=== PATIENT | female | born 1960 | race Caucasian/White ===

== ENCOUNTER 2019-03-01 14:34 | Outpatient (CLI) | payer OTHER ==
--- NOTE | 2019-03-01 16:10 | MMO ---
Bilateral MAMMO Bilat Screen [facility]. CLINICAL HISTORY: Patient is 58 years old and is seen for screening. The patient has the following family history of breast cancer: maternal aunt, at age 55. The patient has no personal history of cancer. The patient has a history of right Excisional Biopsy in 1999 - benign. VIEWS: The views performed were: bilateral craniocaudal with tomosynthesis and bilateral mediolateral oblique with tomosynthesis. FILMS COMPARED: The present examination has been compared to prior imaging studies performed at [facility] on 10/18/2010, 10/22/2011, 03/10/2014 and 09/08/2015. This study has been interpreted with the assistance of computer-aided detection. MAMMOGRAM FINDINGS: The breasts are almost entirely fat. There are no suspicious masses, suspicious calcifications, or new areas of architectural distortion. IMPRESSION: THERE IS NO MAMMOGRAPHIC EVIDENCE OF MALIGNANCY. A ROUTINE FOLLOW-UP MAMMOGRAM IN 1 YEAR IS RECOMMENDED. THE RESULTS OF THIS EXAM WERE SENT TO THE PATIENT. ACR BI-RADS Category 1 - Negative MAMMOGRAPHY NOTE: 1. A negative mammogram report should not delay a biopsy if a dominant of clinically suspicious mass is present. 2. Approximately 10% to 15% of breast cancers are not detected by mammography. 3. Adenosis and dense breasts may obscure an underlying neoplasm. Reported by: ALBERTO MARTINEZ MD Electonically Signed: [id number]
== END 2019-03-01 14:35 | disposition home or self-care (01) ==
LOC: BICMAMMO 14:34
PROVIDERS: ATTEND Nurse Practitioner Family
DX: Z12.31 Encounter for screening mammogram for malignant neoplasm of breast (principal); Z80.3 Family history of malignant neoplasm of breast; Z91.89 Other specified personal risk factors, not elsewhere classified
CPT/HCPCS: 77063; 77067

== ENCOUNTER 2019-04-02 09:41 | Day surgery (SDC) | payer OTHER ==
[2019-04-02] MEDS ORDERED: PROPOFOL 200 MG/20 ML VIAL ONE (11:12)
--- NOTE | 2019-04-02 11:21 | RAD ---
EXAM: 3 views of the cervical spine HISTORY: Neck pain COMPARISON: None FINDINGS: AP, lateral, and open mouth odontoid views of the cervical spine shows normal height and al ignment of the vertebral bodies and intervertebral discs without fracture or subluxation. Mild degenerative changes are seen surrounding the C5/6 intervertebral disc. No prevertebral soft tissue s welling is seen. IMPRESSION: Mild degenerative changes at C5/6 without acute abnormality.
--- NOTE | 2019-04-02 11:24 | RAD ---
XR Shoulder Rt 3 View STANDARD: 04/02/2019 10:35 AM CLINICAL INDICATION: Right shoulder pain. COMPARISON: None. FINDINGS: Bones: No acute fracture or subluxation demonstrated. Small mixed lucent and sclerotic lesion of the humeral head. This lesion was present on the comparison chest radiograph from 2012. Glenohumeral joint: Normal alignment. AC joint: Mild AC joint osteoarthrosis Visualized lung: Clear. Soft tissues: Within normal limits. IMPRESSION: Stable mixed lucent sclerotic lesion of the proximal humeral head is likely reflective of a small low -grade chondroid lesion. This was present on a chest radiograph in the right humeral head in 2012. No acute fracture or subluxation is demonstrated. 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
[2019-04-02] MEDS ORDERED: Fentanyl 100 MCG/2 ML VIAL ONE (11:33)
[2019-04-02] MEDS ORDERED: Midazolam HCl 2 mg/2 ml Vial ONE (11:33)
--- NOTE | 2019-04-02 13:47 | MRI ---
MRI CERVICAL SPINE WITHOUT CONTRAST: HISTORY: Burning pain in the right shoulder. Evaluate for nerve root impingement.. COMPARISON: None. FINDINGS: Appropriate T1 marrow signal intensity of the cervical vertebra. Vertebral body height is maintained. No fracture. No significant STIR hyperintensity to suggest vertebral body edema or ligamentous injury. Straightening of normal cervical lordosis may be positional. Visualized brain parenchyma, cervicomedullary junction, cervical cord and the upper thoracic cord hav e a normal size and signal intensity. C2-C3: Central disc protrusion, abutting the thecal sac. Subarachnoid space is nearly effaced. Minima l contact upon the cervical cord. No significant central canal stenosis. Neural foramina are patent. C3-C4: Broad-based disc-osteophyte complex abuts the thecal sac. Mild deformity of the thecal sac and cervical cord. Mild central canal stenosis. Mild to moderate right neural foraminal narrowing due to uncovertebral and facet hypertrophy. Left neural foramen is patent. C4-C5: Broad-based disc bulge without significant central canal stenosis. Neural foramina are patent. C5-C6: Moderate loss of disc space height. Broad-based disc-osteophyte complex results in mild centra l canal stenosis. Moderate bilateral foraminal narrowing due to uncovertebral hypertrophy. C6-C7: Broad-based disc-osteophyte complex without significant central canal stenosis. Right neural f oramen is patent. Minimal left foraminal narrowing due to uncovertebral hypertrophy. C7-T1: No significant canal stenosis or foraminal narrowing. IMPRESSION: Degenerative changes of the cervical spine as detailed above. Transcribed Date/Time: 04/02/2019 1:52 PM
== END 2019-04-02 14:40 | disposition home or self-care (01) ==
LOC: SDC/OP 09:41
PROVIDERS: ATTEND Orthopaedic Surgery
DX: M47.812 Spondylosis without myelopathy or radiculopathy, cervical region (principal); M19.011 Primary osteoarthritis, right shoulder; I10 Essential (primary) hypertension; E78.5 Hyperlipidemia, unspecified; F32.9 Major depressive disorder, single episode, unspecified; Z79.899 Other long term (current) drug therapy
CPT/HCPCS: 72040; 72141; J2250; J2704; J3010

== ENCOUNTER 2019-11-05 09:21 | Outpatient (CLI) | payer OTHER ==
--- NOTE | 2019-11-05 09:45 | RAD ---
Abdomen one view HISTORY: Abdomen pain and bloating. FINDINGS: Large amount of stool overlies the partially visualized right colon and the rectum. Small bowel gas pattern is nonspecific. Tiny calcification projects over the inferior pole of the left renal shadow. Right renal shadow is mo stly obscured. Upper abdomen is incompletely imaged. Metallic clips overlie the gallbladder fossa. Phleboliths project over the pelvis. Postoperative tripp ges of lower lumbar spine. IMPRESSION : Constipation. Probable tiny left renal calculus. Status post cholecystectomy. Postoperative changes lumbar spine.
== END 2019-11-05 09:22 | disposition home or self-care (01) ==
LOC: RAD-FRANK 09:21
PROVIDERS: ATTEND Nurse Practitioner Family
DX: R10.9 Unspecified abdominal pain (principal); R14.0 Abdominal distension (gaseous); K59.00 Constipation, unspecified; Z90.49 Acquired absence of other specified parts of digestive tract; Z98.890 Other specified postprocedural states
CPT/HCPCS: 74018

== ENCOUNTER 2019-11-30 07:26 | Outpatient (CLI) | payer OTHER ==
--- NOTE | 2019-11-30 08:20 | ULT ---
ABDOMEN ULTRASOUND COMPLETE: HISTORY: Bloating. FINDINGS: Liver echogenicity is heterogeneous, evidence for nonspecific hepatic parenchymal process. Status po st cholecystectomy. Common bile duct 0.6 cm. Visualized pancreas, IVC, aorta, and spleen are unrema rkable. No renal hydronephrosis. A 4.4 x 4.7 cm mid right renal cyst. A 0.8 x 1.1 cm mid lateral left renal cyst. No renal hydronephrosis. IMPRESSION: Coarse liver heterogeneous echogenicity, evidence for nonspecific hepatic parenchymal process. Statu s post cholecystectomy without ductal dilatation. Bilateral renal cysts without hydronephrosis. POS: OFF
== END 2019-11-30 07:27 | disposition home or self-care (01) ==
LOC: SCSULT 07:26
PROVIDERS: ATTEND Nurse Practitioner Family
DX: R10.9 Unspecified abdominal pain (principal); R14.0 Abdominal distension (gaseous); R93.2 Abnormal findings on diagnostic imaging of liver and biliary tract; N28.1 Cyst of kidney, acquired; Z90.49 Acquired absence of other specified parts of digestive tract
CPT/HCPCS: 93975

== ENCOUNTER 2022-05-31 12:28 | Outpatient (CLI) | payer BC | END 2022-05-31 12:29 | disposition home or self-care (01) | LOC: ULT 12:28 | PROVIDERS: ATTEND Nurse Practitioner Family | DX: I89.0 Lymphedema, not elsewhere classified (principal); M79.89 Other specified soft tissue disorders | CPT/HCPCS: 76999 ==

== ENCOUNTER 2024-05-07 13:27 | Outpatient (CLI) | payer MEDICARE, OTHER | END 2024-05-07 13:28 | disposition home or self-care (01) | LOC: BICMAMMO 13:27 | PROVIDERS: ATTEND Nurse Practitioner Family | DX: Z12.31 Encounter for screening mammogram for malignant neoplasm of breast (principal); Z80.3 Family history of malignant neoplasm of breast; Z91.89 Other specified personal risk factors, not elsewhere classified | CPT/HCPCS: 77063; 77067 ==